=== PATIENT | female | born 1950 | race Caucasian/White ===

== ENCOUNTER 2017-08-23 13:17 | Emergency (ER) | payer BC ==
[2017-08-23 13:48] VITALS: BP 149/80
--- NOTE | 2017-08-23 15:20 | UC ---
UC General HPI - HPI Summary HPI Summary: patient reported she drank extra orange juice yesterday, today she noted her blood sugar was higher than usual, continued to report she got arm numbness today, did have an episode of clamminess and emesis this morning and is currently feeling fatigued, she denies SOB, RAZA, orthopnea-oe dependent edema- - History of Current Complaint Chief Complaint: UCGeneralIllness Stated Complaint: ELEVATED SUGAR LEVELS Time Seen by Provider: 08/23/17 15:10 Hx Obtained From: Patient Onset/Duration: Sudden Onset, Lasting Days - 1, Still Present Timing: Constant Onset Severity: Moderate Current Severity: Moderate Associated Signs & Symptoms: Positive: Vomiting, Other - fatigue, arm numbness this morning - Allergy/Home Medications Allergies/Adverse Reactions: Allergies Allergy/AdvReac Type Severity Reaction Status Date / Time Morphine and Related Allergy Intermediate Nausea And Verified 08/23/17 13:47 Vomiting Sulfa Antibiotics Allergy Mild Rash Verified 08/23/17 13:47 Amoxicillin Allergy Rash Verified 08/23/17 13:52 Tramadol Allergy Rash Verified 08/23/17 13:52 Home Medications: Home Medications Atorvastatin* [Lipitor 20 MG*] 20 mg PO DAILY 08/23/17 [History Confirmed ] Cholecalciferol [Vitamin D-3] 5,000 unit 08/23/17 [History] Omeprazole [Prilosec] 1 cap PO DAILY 08/23/17 [History Confirmed 08/23/17] Repaglinide [Prandin] 0.5 mg PO DAILY 08/23/17 [History Confirmed 08/23/17] PMH/Surg Hx/FS Hx/Imm Hx Previously Healthy: No Endocrine History: Diabetes, Dyslipidemia Cardiovascular History: Hypertension GI/ History: Gastroesophageal Reflux - Surgical History Surgical History: Yes Surgery Procedure, Year, and Place: Hysterectomy 1995 - Family History Known Family History: Positive: None - Social History Occupation: Retired Lives: With Family Alcohol Use: None Substance Use Type: None Smoking Status (MU): Never Smoked Tobacco - Immunization History Most Recent Influenza Vaccination: 2017 Most Recent Pneumonia Vaccination: 2017 Review of Systems Constitutional: Negative Skin: Negative Eyes: Negative ENT: Negative Respiratory: Negative Cardiovascular: Negative Gastrointestinal: Vomiting Genitourinary: Negative Motor: Negative Neurovascular: Negative Musculoskeletal: Negative, Other: - resolved episode of arm numbness Neurological: Other - fatigue Psychological: Negative Is Patient Immunocompromised?: No All Other Systems Reviewed And Are Negative: Yes Physical Exam Triage Information Reviewed: Yes Appearance: No Pain Distress, Well-Nourished, Ill-Appearing - mild,pale Vital Signs: Initial Vital Signs Temp 98.1 F 08/23/17 13:41 Pulse 119 08/23/17 13:41 Resp 14 08/23/17 13:41 BP 149/80 08/23/17 13:41 Pulse Ox 98 08/23/17 13:41 Vital Signs Reviewed: Yes Eye Exam: Normal Eyes: Positive: Conjunctiva Clear ENT Exam: Normal ENT: Positive: Normal ENT inspection, Hearing grossly normal, Pharynx normal, TMs normal, Uvula midline. Negative: Nasal congestion, TM bulging, Tonsillar swelling, Tonsillar exudate, Trismus, Muffled voice, Hoarse voice, Dental tenderness, Sinus tenderness Dental Exam: Normal Neck exam: Normal Neck: Positive: Supple, Nontender, No Lymphadenopathy Respiratory Exam: Normal Respiratory: Positive: Chest non-tender, Lungs clear, Normal breath sounds, No respiratory distress, No accessory muscle use Cardiovascular Exam: Normal Cardiovascular: Positive: RRR, No Murmur, Pulses Normal, Brisk Capillary Refill Musculoskeletal Exam: Normal Neurological Exam: Normal Neurological: Positive: Alert, Muscle Tone Normal, Fatigued Psychological Exam: Normal Skin Exam: Normal Diagnostics - Laboratory Diagnostic Studies Completed/Ordered: FSBS-159, no ketones in urine Course/Dx - Course Course Of Treatment: has taken asprin today transfer to [facility] ED for further evaluation and medical care, - Differential Dx - Multi-Symptom Provider Diagnoses: Hyperglycemia, Fatigue - Physician Notifications Time Discussed With Above Provider: 15:45 - Amy Pedroza RN (MD Not available) Instructed by Provider To: Transfer Discharge - Discharge Plan Condition: Guarded Disposition: OTHER Discharge Disposition Comment: to ed via private car-(PATIENT REFUSED ems) Patient Education Materials: Fatigue (ED) Referrals: Yosi Luther MD [Primary Care Provider] - Additional Instructions: please go directly to the hospital for further evaluation of fatigue, emesis and arm numbness
== END 2017-08-23 15:50 ==
LOC: UCEAST 13:17
DX: E11.65 Type 2 diabetes mellitus with hyperglycemia (principal); Z79.84 Long term (current) use of oral hypoglycemic drugs; E78.5 Hyperlipidemia, unspecified; I10 Essential (primary) hypertension; K21.9 Gastro-esophageal reflux disease without esophagitis; Z90.710 Acquired absence of both cervix and uterus; Z88.1 Allergy status to other antibiotic agents; Z88.5 Allergy status to narcotic agent; Z88.2 Allergy status to sulfonamides
CPT/HCPCS: 81003; 99202; G0463

== ENCOUNTER 2017-08-23 16:04 | Emergency (ER) | payer BC ==
[2017-08-23] MEDS ORDERED: NS 0.9% 1000 ML* 1,000 ML IV ONE (17:36)
[2017-08-23 18:41] LABS: Urine Appearance Clear; Urine Blood Negative (Negative); Urine Color Straw; Urine Ketones Negative (Negative); Urine Protein Negative (Negative); Urine Specific Gravity 1.002 (1.010-1.030); Urine Urobilinogen Negative (Negative)
[2017-08-23 18:52] LABS: EGFR Non-African American 72.8 (>60)
[2017-08-23 19:14] VITALS: BP 143/83
--- NOTE | 2017-08-24 07:40 | ED ---
Rick Lopez Nikita, scribed for Christos Sanchez MD on 08/23/17 at 1733 . Complex/Multi-Sys Presentation - HPI Summary HPI Summary: This patient is a 66 year old F presenting to ED with a chief complaint of tingling and cramping sensations in the arm and hand since 0800 today. Pt woke up with diaphoresis. She had her breakfast and took her medicine after. Pt reports she was shaking, so she checked her glucose and found them to be in the 240s. She drank 5 cups of water and checked her glucose levels again and found them in the 280s. She vomited on the way to [facility] where her glucose level went down to 159. - History Of Current Complaint Chief Complaint: EDDiabeticProb Time Seen by Provider: 08/23/17 17:19 Hx Obtained From: Patient Onset/Duration: Sudden Onset, Lasting Hours, Still Present Timing: Constant, Hours Aggravating Factor(s): nothing Alleviating Factor(s): nothing Associated Signs And Symptoms: Positive: Other - diaphoresis, tingling sensations, shaking. - Allergies/Home Medications Allergies/Adverse Reactions: Allergies Allergy/AdvReac Type Severity Reaction Status Date / Time Morphine and Related Allergy Intermediate Nausea And Verified 08/23/17 13:47 Vomiting Sulfa Antibiotics Allergy Mild Rash Verified 08/23/17 13:47 Amoxicillin Allergy Rash Verified 08/23/17 13:52 Tramadol Allergy Rash Verified 08/23/17 13:52 PMH/Surg Hx/FS Hx/Imm Hx Endocrine/Hematology History: Denies: Hx Diabetes, Hx Thyroid Disease Cardiovascular History: Reports: Hx Hypertension Respiratory History: Denies: Hx Asthma, Hx Chronic Obstructive Pulmonary Disease (COPD) GI History: Reports: Hx Ulcer - Surgical History Surgery Procedure, Year, and Place: Hysterectomy 1995 Infectious Disease History: No Infectious Disease History: Denies: Hx Clostridium Difficile, Hx Hepatitis, Hx Human Immunodeficiency Virus (HIV), Hx of Known/Suspected MRSA, Hx Shingles, Hx Tuberculosis, Hx Known/ Suspected VRE, Hx Known/Suspected VRSA, History Other Infectious Disease, Traveled Outside the [place] in Last 30 Days - Family History Known Family History: Positive: None - Social History Alcohol Use: None Substance Use Type: Reports: None Smoking Status (MU): Never Smoked Tobacco Review of Systems Positive: Skin Diaphoresis Positive: Other - shaking, tingling sensations in arm All Other Systems Reviewed And Are Negative: Yes Physical Exam - Summary Physical Exam Summary: VITAL SIGNS: Reviewed. GENERAL: ~Patient is a well-developed and nourished female who is lying comfortable in the stretcher. ~Patient is not in any acute respiratory distress. HEAD AND FACE: No signs of trauma. ~No ecchymosis, hematomas or skull depressions. No sinus tenderness. EYES: PERRLA, EOMI x 2, No injected conjunctiva, no nystagmus. EARS: Hearing grossly intact. Ear canals and tympanic membranes are within normal limits. MOUTH: Oropharynx within normal limits. NECK: Supple, trachea is midline, no adenopathy, no JVD, no carotid bruit, no c- spine tenderness, neck with full ROM. CHEST: Symmetric, no tenderness at palpation LUNGS: Clear to auscultation bilaterally. No wheezing or crackles. CVS: Regular rate and rhythm, S1 and S2 present, no murmurs or gallops appreciated. ABDOMEN: Soft, non-tender. No signs of distention. No rebound no guarding, and no masses palpated. Bowel sounds are normal. EXTREMITIES: FROM in all major joints, no edema, no cyanosis or clubbing. NEURO: Alert and oriented x 3. No acute neurological deficits. Speech is normal and follows commands. SKIN: Dry and warm Triage Information Reviewed: Yes Vital Signs On Initial Exam: Initial Vitals Temp Pulse Resp BP Pulse Ox 96.8 F 85 16 140/87 98 08/23/17 16:19 08/23/17 16:19 08/23/17 16:19 08/23/17 16:19 08/23/17 16:19 Vital Signs Reviewed: Yes - Atilio Coma Scale Coma Scale Total: 15 Diagnostics - Vital Signs Vital Signs Temp Pulse Resp BP Pulse Ox 08/23/17 16:19 96.8 F 85 16 140/87 98 - Laboratory Lab Results: Lab Results 08/23/17 08/23/17 08/23/17 Range/Units 18:14 18:31 18:31 VBG pH 7.47 H (7.33-7.43) VBG pCO2 48 (41-51) mmHg VBG pO2 43 (35-45) mmHg VBG HCO3 32.0 H (24-28) mmol/L VBG O2 Saturation 81.9 H (70-80) % VBG Base Excess 9.7 H (0-4) Sodium 132 L (133-145) mmol/L Potassium Pending Chloride 93 L (101-111) mmol/L Carbon Dioxide 26 (22-32) mmol/L Anion Gap Pending BUN 14 (6-24) mg/dL Creatinine 0.79 (0.51-0.95) mg/dL Est GFR ( Amer) 93.6 (>60) Est GFR (Non-Af Amer) 72.8 (>60) BUN/Creatinine Ratio 17.7 (8-20) Glucose 90 (70-100) mg/dL Calcium 10.5 H (8.6-10.3) mg/dL Total Bilirubin 0.50 (0.2-1.0) mg/dL AST Pending ALT 25 (7-52) U/L Alkaline Phosphatase 90 (34-104) U/L C-Reactive Protein 3.08 (< 5.00) mg/L Total Protein 7.8 (6.4-8.9) g/dL Albumin 4.6 (3.2-5.2) g/dL Globulin 3.2 (2-4) g/dL Albumin/Globulin Ratio 1.4 (1-3) Urine Color Straw Urine Appearance Clear Urine pH 8.0 (5-9) Ur Specific Una 1.002 L (1.010-1.030) Urine Protein Negative (Negative) Urine Ketones Negative (Negative) Urine Blood Negative (Negative) Urine Nitrate Negative (Negative) Urine Bilirubin Negative (Negative) Urine Urobilinogen Negative (Negative) Ur Leukocyte Esterase Negative (Negative) Urine Glucose Negative (Negative) Result Diagrams: 08/23/17 18:31 Lab Statement: Any lab studies that have been ordered have been reviewed, and results considered in the medical decision making process. Complex Multi-Symp Course/Dx Assessment/Plan: This patient is a 66 year old F presenting to ED with a chief complaint of tingling and cramping sensations in the arm and hand since 0800 today. Physical exam is found to be within normal limits. She has no complaints and she is asymptomatic. She has no complaints. FS is 169. Blood work is not completed, Still awaiting for CBC and some electrolytes. Patient reports she wants to go home. She declined any repeated labs. She reports since she is feeling better she wants to go home. She refused any other testing. Therefore she will be discharged home with f/u of PCP. Patient was instructed to return to the emergency room immediately if any of the symptoms return or worsens. Plan of care was discussed with the patient and understands and agrees. All questions were answered at patient satisfaction. There were no further complaints or concerns. Lung exam before discharge: CTA B/L. Good air exchange. No wheezing or crackles heard. CVS: S1 and S2 present. No murmurs appreciated. Patient is alert and oriented x 3. Patient is hemodynamically stable. Patient will be discharged home with follow up PCP in the next 2-3 days - Diagnoses Differential Diagnoses/HQI/PQRI: Other - hyperglycemia, hypoglycemia, Provider Diagnoses: Hyperglycemia Discharge - Discharge Plan Condition: Stable Disposition: HOME Patient Education Materials: Diabetic Hyperglycemia (ED) Referrals: Yosi Luther MD [Primary Care Provider] - 3 Days Additional Instructions: Return to ED if worsening conditions. The documentation as recorded by the Rick watt Nikita accurately reflects the service I personally performed and the decisions made by Daniel de la cruz Walter, MD.
== END 2017-08-23 19:15 | disposition home or self-care (01) ==
LOC: ED 16:04
DX: R73.9 Hyperglycemia, unspecified (principal); Z76.89 Persons encountering health services in other specified circumstances
CPT/HCPCS: 36415; 80053; 81003; 82803; 86140; 96360; 99282

== ENCOUNTER 2018-02-04 10:40 | Emergency (ER) | payer BC, MEDICARE ==
[2018-02-04 11:11] VITALS: BP 140/76
--- NOTE | 2018-02-04 11:21 | UC ---
Throat Pain/Nasal Anupam HPI - HPI Summary HPI Summary: 67 y/o female presents to the urgent care c/o sinus pressure, pain w/ nasal congestion and green nasal discharge for the past week. Pt reports symptoms started w/ common cold. She has been taking Nyquill, Mucinex PO to alleviate symptoms w/o any relief. Today she took a Motrin PO for her GILLESPIE. Pain is 5/10 associated w/ B/L ear pressure and moderate +PND and dry cough. Pt denies fever , SOB, chest pain, abdominal pain, N/V/D. - History of Current Complaint Chief Complaint: UCRespiratory Stated Complaint: SINUS ISSUE Time Seen by Provider: 02/04/18 11:20 Hx Obtained From: Patient ?: No Onset/Duration: Gradual Onset, Lasting Weeks - 1 week, Worse Since - today Severity: Moderate Pain Intensity: 5 Pain Scale Used: 0-10 Numeric Cough: Nonproductive Associated Signs & Symptoms: Positive: Sinus Discomfort, Nasal Discharge - Epiglottits Risk Factors Epiglottis Risk Factors: Negative - Allergies/Home Medications Allergies/Adverse Reactions: Allergies Allergy/AdvReac Type Severity Reaction Status Date / Time amoxicillin Allergy Rash Verified 02/04/18 11:22 Sulfa (Sulfonamide Allergy Rash Verified 02/04/18 11:22 Antibiotics) tramadol Allergy Rash Verified 02/04/18 11:22 morphine AdvReac Nausea And Verified 02/04/18 11:22 Vomiting PMH/Surg Hx/FS Hx/Imm Hx Previously Healthy: Yes Endocrine History: Diabetes, Dyslipidemia Cardiovascular History: Hypertension GI/ History: Gastroesophageal Reflux - Surgical History Surgical History: Yes Surgery Procedure, Year, and Place: Hysterectomy 1995. L knee 1/2 replacement - Family History Known Family History: Positive: Diabetes - Social History Occupation: Unemployed Lives: With Family Alcohol Use: None Substance Use Type: None Smoking Status (MU): Never Smoked Tobacco - Immunization History Most Recent Influenza Vaccination: 2017 Most Recent Pneumonia Vaccination: 2017 Review of Systems Constitutional: Negative Skin: Negative Eyes: Negative ENT: Nasal Discharge, Sinus Congestion, Sinus Pain/Tenderness Respiratory: Cough - dry Cardiovascular: Negative Gastrointestinal: Negative Genitourinary: Negative Motor: Negative Neurovascular: Negative Musculoskeletal: Negative Neurological: Headache Psychological: Negative Is Patient Immunocompromised?: No All Other Systems Reviewed And Are Negative: Yes Physical Exam - Summary Physical Exam Summary: Vitals: reviewed General: Well developed, well-nourished female patient with NAD. Head and face: Normocephalic and atraumatic, Positive tenderness over the frontal and maxillary sinuses.. Eyes: PERRLA, EOMI x 2. Normal conjunctiva. No eye discharge. ENT: Ears and TM with normal limits. Nose: edematous and erythematous nasal mucosa with with yellowish discharge and erythematous mucosa. Pharynx with erythema, no exudate. +PND yellowish. Neck: Supple, no JVD, no carotid bruits and no lymphadenopathy. Lungs: clear, no rales, no rhonchi, no wheezes. CVS: RRR, S1 and S2 present no murmurs or gallops appreciated. Abdomen: soft nontender with positive bowel sounds. Extremities: no edema noted. Neuro: WNL. Skin: warm and dry Triage Information Reviewed: Yes Vital Signs: Initial Vital Signs Temp 97.6 F 02/04/18 11:05 Pulse 95 02/04/18 11:05 Resp 16 02/04/18 11:05 BP 140/76 02/04/18 11:05 Pulse Ox 98 02/04/18 11:05 Throat Pain/Nasal Course/Dx - Course Course Of Treatment: 67 y/o female presents to the urgent care c/o sinus pressure, pain w/ nasal congestion and green nasal discharge for the past week. Pt reports symptoms started w/ common cold. She has been taking Nyquill, Mucinex PO to alleviate symptoms w/o any relief. Today she took a Motrin PO for her GILLESPIE. Pain is 5/10 associated w/ B/L ear pressure and moderate +PNDand dry cough. Pt denies fever, SOB, chest pain, abdominal pain, N/V/D.Hx obtained. Pt PCN allergic. Pt with 1 week of symptoms getting worse. Pt Rx Doxycicline PO and flonase nasal spray. Advised to take Tylenol for GILLESPIE. Pt's BP is elevated today advised to decrease salt in diet, monitor BP and f/u with PCP for further management. Discharge instructions explained to Pt. Advised to Return to the clinic or PCP if symptoms do not improve.Pt understood and agreed with plan of care. - Differential Dx/Diagnosis Differential Diagnosis/HQI/PQRI: Influenza, Laryngitis, Sinusitis, URI Provider Diagnoses: 1- Acute bacterial sinusitis. 2- Uncontrolled HTN Discharge - Sign-Out/Discharge Documenting (check all that apply): Discharge/Admit/Transfer - D/c home - Discharge Plan Condition: Stable Disposition: HOME Prescriptions: DOXYcycline CAP(*) [DOXYcycline 100MG CAP(*)] 100 mg PO BID #20 cap Fluticasone NASAL SPRAY 50MCG* [Flonase NASAL SPRAY 50MCG*] 2 spray BOTH NARES DAILY #1 btl Patient Education Materials: Sinusitis (ED), Low-Sodium Diet (ED) Referrals: Yosi Luther MD [Primary Care Provider] - 3 Days Additional Instructions: 1- Please increase fluid intake and rest. take full course of antibiotic to avoid resistance 2-Use Flonase as directed to help drain fluid. Also buy saline drops to clear sinuses 3-TakeTylenol PO q6-8hrs prn PO to alleviates sinus pain and GILLESPIE 4-Return to the clinic or PCP in 3 days if symptoms do not improve for further management and treatment 5-Your BP is elevated today. please decrease salt in your diet, monitor BP and if it continues to be elevated please f/u with your PCP for further management - Billing Disposition and Condition Condition: STABLE Disposition: Home
== END 2018-02-04 11:50 | disposition home or self-care (01) ==
LOC: UCEAST 10:40
DX: J01.90 Acute sinusitis, unspecified (principal); I10 Essential (primary) hypertension; E11.9 Type 2 diabetes mellitus without complications; E78.5 Hyperlipidemia, unspecified; K21.9 Gastro-esophageal reflux disease without esophagitis; Z96.652 Presence of left artificial knee joint; Z88.5 Allergy status to narcotic agent; Z88.0 Allergy status to penicillin; Z88.2 Allergy status to sulfonamides; Z83.3 Family history of diabetes mellitus
CPT/HCPCS: 99212; G0463